=== PATIENT | male | born 1980 | race Two or more races ===

== ENCOUNTER 2024-08-05 13:57 | Emergency (ER) | payer MEDICAID, OTHER ==
[~2024-08-05] VITALS: Ht 162.6 cm; Wt 85.4 kg
--- NOTE | 2024-08-05 16:42 | DVH ---
Procedure: CT HEAD WITHOUT CONTRAST Study Date and Requested Time: 08/05/2024 04:22 PM History: HEADACHE POST FALL Comparison: None Dose: CTDI: 51.88 mGy DLP: 831.82 mGycm Technique: Multiplanar images obtained through the brain without intravenous contrast. Findings: Mild frontal lobe predominate brain atrophy. No hemorrhages, masses, mass effect, midline shift, herniation or cytotoxic edema following a large v ascular territory. No intra-axial or extra-axial fluid collections. No evidence of hydrocephalus. The basal cisterns are patent. The pituitary gland, sella and parasellar regions are unremarkable. The cerebellar tonsils are in nor mal position. The cerebellum is unremarkable. The orbits and globes are unremarkable. Pansinus mucoperiosteal thickening. The mastoids are clear. There are no worrisome calvarial lesions. Impression: No evidence of acute intracranial abnormality. Pansinus disease.
[2024-08-05] MEDS ORDERED: AMOX875T3 PO (16:55)
[2024-08-05] MEDS ORDERED: IBUP-1456 PO (16:55)
--- NOTE | 2024-08-05 16:55 | ED.PDOC ---
Sharon. trauma (HPI) HPI Comments A 43 YEAR OLD MALE PRESENTS TO THE ED WITH COMPLAINT OF HEADACHE S/P HEAD INJURY. PATIENT STATES HE ACCIDENTALLY TRIPPED AND FELL AND HIT THE LEFT SIDE OF HIS HEAD ON THE TABLE 3 WEEKS AGO. PATIENT REPORTS HE HAS BEEN EXPERIENCING HEADACHES OFF AND ON FOR THE PAST 3 WEEKS SINCE THIS INJURY WITH WORSENING PAIN OVER THE PAST 1 WEEK. PATIENT DENIES VISION CHANGES, SLURRED SPEECH, ONE-SIDED WEAKNESS, FACIAL DROOP, FEVER, CHILLS, SHORTNESS OF BREATH, CHEST PAIN, ABDOMINAL PAIN, NAUSEA, VOMITING, OR OTHER COMPLAINTS. NO OTHER SYMPTOMS OR MODIFYING FACTORS AT THIS TIME. PATIENT IS ALERT, ORIENTED X 4, AND HAS STEADY GAIT. Chief Complaint: Headache Time Seen by MD: 15:58 Reviewed notes: Nurses Notes, Medications, Allergies Allergies: Coded Allergies: NO KNOWN ALLERGIES (Unverified , 08/05/24) Home Meds Active Scripts Ibuprofen (Ibuprofen) 800 Mg Tab, 1 TAB PO TID, #30 TAB Prov:DOMI VIDAL 08/05/24 Amoxicillin Trihydrate (Amoxicillin) 875 Mg Tab, 1 TAB PO BID, #20 TAB Prov:DOMI VIDAL 08/05/24 Information Source: Patient Mode of Arrival: Ambulatory Severity: Moderate Timing: Weeks Duration: Since onset Prehospital treatment: None Location: Head Location of laceration: None Mechanism: Fall Associated signs and symtoms: Headache Past Medical History PAST MEDICAL HISTORY: Anxiety Surgical History: Denies all surgeries Family History Family History: Reviewed,noncontributory to illness Social History Smoker: Non-Smoker Alcohol: Denies ETOH Use Drugs: Denies Drug Use Lives In: Home Constitutional: denies: chills, diaphoresis, fatigue, fever, malaise, sweats, weakness, others EENTM: denies: blurred vision, double vision, ear bleeding, ear discharge, ear drainage, ear pain, ear ringing, eye pain, eye redness, hearing loss, mouth pain, mouth swelling, nasal discharge, nose bleeding, nose congestion, nose pain, photophobia, tearing, throat pain, throat swelling, voice changes, others Respiratory: denies: cough, hemoptysis, orthopnea, SOB at rest, shortness of breath, SOB with excertion, stridor, wheezing, others Cardiovascular: denies: chest pain, dizzy spells, diaphoresis, Dyspnea on exertion, edema, irregular heart beat, left arm pain, lightheadedness, palpitations, PND, syncope, others Gastrointestinal: denies: abdomen distended, abdominal pain, blood streaked bowels, constipated, diarrhea, dysphagia, difficulty swallowing, hematemesis, melena, nausea, poor appetite, poor fluid intake, rectal bleeding, rectal pain, vomiting, others Genitourinary: denies: burning, dysuria, flank pain, frequency, hematuria, incontinence, penile discharge, penile sore, pain, testicle pain, testicle swelling, urgency, others Neurological: reports: headache; denies: dizziness, fainting, left sided numbness, left sided weakness, numbness, paresthesia, pre-existing deficit, right sided numbness, right sided weakness, seizure, speech problems, tingling, tremors, weakness, others Musculoskeletal: denies: back pain, gout, joint pain, joint swelling, muscle pain, muscle stiffness, neck pain, others Integumetry: denies: bruises, change in color, change in hair/nails, dryness, laceration, lesions, lumps, rash, wounds, others Allergic/Immunocompromised: denies: Difficulty Healing, Frequent Infections, Hives, Itching, others Hematologic/Lymphatic: denies: anemia, blood clots, easy bleeding, easy bruising, swollen glands, others Endocrine: denies: excessive hunger, excessive sweating, excessive thirst, excessive urination, flushing, intolerance to cold, intolerance to heat, unexplained weight gain, unexplained weight loss, others Psychiatric: denies: anxiety, bipolar disorder, depression, hopeless, panic disorder, schizophrenia, sleepless, suicidal, others All Other Systems: Reviewed and Negative Physical Exam General Appearance: No Apparent Distress, Normal, Other (ANXIOUS ) HEENT: Head (NO SCALP CONTUSIONS AND HEMATOMAS, NO DEFORMITY. ), Normal ENT Inspection, PERRL/EOMI, Pharynx Normal, TMs Normal Neck: Full Range of Motion, Non-Tender, Normal, Normal Inspection Respiratory: Chest Non-Tender, Lungs Clear, No Accessory Muscle Use, No Re spiratory Distress, Normal Breath Sounds Cardiovascular: No Edema, No JVD, No Murmur, No Gallop, Normal Peripheral Pulses, Regular Rate/Rhythm Breast Exam: Deferred Gastrointestinal: No Organomegaly, Non Tender, No Pulsatile Mass, Normal Bowel Sounds, Soft Genitalia: Deferred Pelvic: Deferred Rectal: Deferred Extremities: No calf tenderness, Normal capillary refill, Normal inspection, Normal range of motion, Non-tender, No pedal edema Musculoskeletal : Apperance: Normal Neurologic: Alert, kitchen food assembler II-XII nml as Tested, No Motor Deficits, Normal Affect, Normal Mood, No Sensory Deficits Cerebellar Function: Normal Reflexes: Normal Skin: Dry, Normal Color, Warm Peripheral Pulses: 2+ carotid (R), 2+ carotid (L) Lymphatic: No Adenopathy Was a procedure done? Was a procedure done?: No Differential Diagnosis Multiple Trauma: Closed Head Injury, Fractures, Cerebral Contusion, Contusion, Hematoma Neck Injury: N/A X-Ray, Labs, Meds, VS Vital Signs Date Time Temp Pulse Resp B/P (MAP) Pulse Ox O2 Delivery O2 Flow Rate FiO2 08/05/24 14:34 97.6 92 20 135/97 (110) 97 Procedure: CT HEAD WITHOUT CONTRAST Study Date and Requested Time: 08/05/2024 04:22 PM History: HEADACHE POST FALL Comparison: None Dose: CTDI: 51.88 mGy DLP: 831.82 mGycm Technique: Multiplanar images obtained through the brain without intravenous contrast. Findings: Mild frontal lobe predominate brain atrophy. No hemorrhages, masses, mass effect, midline shift, herniation or cytotoxic edema following a large vascular territory. No intra-axial or extra-axial fluid collections. No evidence of hydrocephalus. The basal cisterns are patent. The pituitary gland, sella and parasellar regions are unremarkable. The cerebellar tonsils are in normal position. The cerebellum is unremarkable. The orbits and globes are unremarkable. Pansinus mucoperiosteal thickening. The mastoids are clear. There are no worrisome calvarial lesions. Impression: No evidence of acute intracranial abnormality. Pansinus disease. ATED BY: NANETTE STANLEY DO DICTATED DATE/TIME: 08/05/241638 SIGNED BY: NANETTE STANLEY DO SIGNED DATE/TIME: 08/05/241638 CC: X-Ray, Labs, Meds, VS Comment EXTERNAL NOTES: NONE INDEPENDENT HISTORIANS: NONE SOCIAL DETERMINANTS OF HEALTH: NONE LABS ORDERED: NONE REVIEWED AND INTERPRETED RESULTS: NONE IMAGING ORDERED: CT BRAIN TREATMENTS ORDERED: NONE PATIENT'S CASE AND RESULTS HAVE BEEN DISCUSSED WITH THE ED ATTENDING PHYSICIAN AND THEY AGREE WITH MY PLAN OF CARE. I HAVE DISCUSSED IMAGING RESULTS WITH THE PATIENT AND HAVE INSTRUCTED THE PATIENT TO FOLLOW UP WITH THEIR PCP IN 1-2 DAYS. THE PATIENT FULLY UNDERSTANDS THEIR RESULTS AND ARE AWARE THEY NEED TO FOLLOW UP WITH THEIR PCP FOR FURTHER EVALUATION IF THEIR SYMPTOMS PERSIST. Images Reviewed?: Images reviewed and evaluated by me Time of 1ST Reevaluation: 17:00 Reevaluation 1ST: Improved Patient Education/Counseling: Diagnosis, Treatment, Need For Follow Up Family Education/Counseling: Diagnosis, Treatment, Need For Follow Up Departure 1 Departure Time of Disposition: 17:00 Impression: Primary Impression: Acute headache Qualified Codes: G44.319 - Acute post-traumatic headache, not intractable Additional Impressions: Status post fall Sinus disease Disposition: HOME / SELF CARE / HOMELESS Condition: Stable Additional Instructions: FOLLOW-UP WITH PCP IN 1 TO 2 DAYS. TAKE MEDICATIONS PRESCRIBED. RETURN TO ED FOR ANY NEW OR WORSENING SYMPTOMS. e-Prescriptions Ibuprofen (Ibuprofen) 800 Mg Tab 1 TAB PO TID, #30 TAB Prov: DOMI VIDAL 08/05/24 Amoxicillin Trihydrate (Amoxicillin) 875 Mg Tab 1 TAB PO BID, #20 TAB Prov: DOMI VIDAL 08/05/24 Discharged With: Self Critical Care Note Critical Care Time?: No Stability Stability form required: No I personally scribed for DOMI VIDAL ([email or web address]) on 08/05/24 at 16:55. Electronically submitted by Jude Tian ([email or web address]). DOMI VIDAL Aug 05, 2024 16:55
[2024-08-05 16:58] VITALS: BP 143/85; PULSE 85; RESP 16; O2SAT 98
== END 2024-08-05 17:08 | disposition home or self-care (01) ==
LOC: ER 13:57
DX: R51.9 Headache, unspecified (principal); J32.9 Chronic sinusitis, unspecified; W18.39XA Other fall on same level, initial encounter; Y93.89 Activity, other specified; Y92.89 Other specified places as the place of occurrence of the external cause; Y99.8 Other external cause status
CPT/HCPCS: 70450

== ENCOUNTER 2025-01-19 08:09 | Emergency (ER) | payer MEDICAID ==
[~2025-01-19] VITALS: Ht 167.6 cm; Wt 89.6 kg
[~2025-01-19 08:09] MED LIST: AMOX875T3 PO; IBUP-1456 PO
[2025-01-19 08:28] LABS: Urine Bacteria None Seen /hpf (None Seen)
[2025-01-19 08:55] LABS: Urine Blood TRACE /uL (Negative); Urine Clarity Clear (Clear); Urine Color Yellow (Yellow); Urine Mucus FEW (None Seen); Urine Protein, UAD TRACE (Negative); Urine Specific Gravity 1.031 (1.001-1.035); Urine Squamous Epithelial Cell None Seen /hpf (<5); Urine Urobilinogen Normal (Negative); Urine WBC 3 /HPF (0-3); Urine pH 5.5 (5.0-9.0)
--- NOTE | 2025-01-19 09:18 | DVH ---
ULTRASOUND OF SCROTUM AND CONTENTS. INDICATION: LEFT TESTICULAR SWELLING AND PAIN COMPARISON: None TECHNIQUE: Multiple real-time grayscale sonographic and color and duplex Doppler images of the scrotu m and its contents were obtained. FINDINGS: The right testicle measures 4 cm. The left testicle measures 4 cm. Both testicles demonstrate homogeneous echotexture without evidence of focal lesions. The right epididymal head measures 2 cm. The left epididymal head measures 2.8 cm. Subsequent color and duplex Doppler interrogation of the testes demonstrated symmetric normal vascula r flow to both testicles. Increased vascular flow to the left epididymis. IMPRESSION: Left epididymitis
--- NOTE | 2025-01-19 10:19 | ED.PDOC ---
General HPI Comments This is a 44 year old male presenting to the ED with chief complaint of testicular pain. Patient reports that he has been experiencing left sided testicular pain, swelling, and dysuria for the past week. Patient relays that Ibuprofen relieved his pain and swelling for some time, but once stopping it, his pain and swelling returned. Patient denies any hematuria, flank pain, fever, nausea, vomiting, or abdominal pain. Chief Complaint: Testicle Pain Time Seen by MD: 10:15 Primary Care Provider: ? Reviewed notes: Nurses Notes, Medications, Allergies Allergies: Coded Allergies: NO KNOWN ALLERGIES (Unverified , 08/05/24) Home Meds Active Scripts Ibuprofen (Ibuprofen) 800 Mg Tab, 1 TAB PO TID, #30 TAB Prov:DOMI VIDAL 08/05/24 Amoxicillin Trihydrate (Amoxicillin) 875 Mg Tab, 1 TAB PO BID, #20 TAB Prov:DOMI VIDAL 08/05/24 Information Source: Patient Mode of Arrival: Ambulatory Severity: Moderate Timing: Days Duration: Since onset Prehospital treatment: None Onset: Spontaneous Symptoms: Dysuria History of: None Location: None Location male: L Scrotum Penile discharge: None Modifying factors: None Past Medical History PAST MEDICAL HISTORY: Anxiety Surgical History: Denies all surgeries Family History Family History: Reviewed,noncontributory to illness Social History Smoker: Non-Smoker Alcohol: Denies ETOH Use Drugs: Denies Drug Use Lives In: Home Constitutional: denies: chills, diaphoresis, fatigue, fever, malaise, sweats, weakness, others EENTM: denies: blurred vision, double vision, ear bleeding, ear discharge, ear drainage, ear pain, ear ringing, eye pain, eye redness, hearing loss, mouth pain, mouth swelling, nasal discharge, nose bleeding, nose congestion, nose pain, photophobia, tearing, throat pain, throat swelling, voice changes, others Respiratory: denies: cough, hemoptysis, orthopnea, SOB at rest, shortness of breath, SOB with excertion, stridor, wheezing, others Cardiovascular: denies: chest pain, dizzy spells, diaphoresis, Dyspnea on exertion, edema, irregular heart beat, left arm pain, lightheadedness, palpitations, PND, syncope, others Gastrointestinal: denies: abdomen distended, abdominal pain, blood streaked bowels, constipated, diarrhea, dysphagia, difficulty swallowing, hematemesis, melena, nausea, poor appetite, poor fluid intake, rectal bleeding, rectal pain, vomiting, others Genitourinary: reports: dysuria, testicle pain, testicle swelling; denies: burning, flank pain, frequency, hematuria, incontinence, penile discharge, penile sore, pain, urgency, others Neurological: denies: dizziness, fainting, headache, left sided numbness, left sided weakness, numbness, paresthesia, pre-existing deficit, right sided numbness, right sided weakness, seizure, speech problems, tingling, tremors, weakness, others Musculoskeletal: denies: back pain, gout, joint pain, joint swelling, muscle pain, muscle stiffness, neck pain, others Integumetry: denies: bruises, change in color, change in hair/nails, dryness, laceration, lesions, lumps, rash, wounds, others Allergic/Immunocompromised: denies: Difficulty Healing, Frequent Infections, Hives, Itching, others Hematologic/Lymphatic: denies: anemia, blood clots, easy bleeding, easy bruising, swollen glands, others Endocrine: denies: excessive hunger, excessive sweating, excessive thirst, excessive urination, flushing, intolerance to cold, intolerance to heat, unexplained weight gain, unexplained weight loss, others Psychiatric: denies: anxiety, bipolar disorder, depression, hopeless, panic disorder, schizophrenia, sleepless, suicidal, others All Other Systems: Reviewed and Negative Physical Exam General Appearance: No Apparent Distress, Normal HEENT: Normal ENT Inspection, Pharynx Normal, TMs Normal Neck: Full Range of Motion, Non-Tender, Normal, Normal Inspection Respiratory: Chest Non-Tender, Lungs Clear, No Accessory Muscle Use, No Respiratory Distress, Normal Breath Sounds Cardiovascular: No Edema, No JVD, No Murmur, No Gallop, Normal Peripheral Pulses, Regular Rate/Rhythm Breast Exam: Deferred Gastrointestinal: No Organomegaly, Non Tender, No Pulsatile Mass, Normal Bowel Sounds, Soft Genitalia: Other (Testicular tenderness) Pelvic: Deferred Rectal: Deferred Extremities: No calf tenderness, Normal capillary refill, Normal inspection, Normal range of motion, Non-tender, No pedal edema Musculoskeletal : Apperance: Normal Neurologic: Alert, property coordinator II-XII nml as Tested, No Motor Deficits, Normal Affect, Normal Mood, No Sensory Deficits Cerebellar Function: Normal Reflexes: Normal Skin: Dry, Normal Color, Warm Lymphatic: No Adenopathy Was a procedure done? Was a procedure done?: No Differential Diagnosis Kidney stone (Female): N/A Kidney stone (Male): N/A Penile/Scrotal: Epidiymitis, UTI, Hydrocele X-Ray, Labs, Meds, VS Vital Signs Date Time Temp Pulse Resp B/P (MAP) Pulse Ox O2 Delivery O2 Flow Rate FiO2 01/19/25 08:23 98.4 79 18 148/95 (112) 97 98.4 Lab Test 01/19/25 08:19 Range/Units Urine Color Yellow Yellow Urine Clarity Clear Clear Urine pH 5.5 5.0-9.0 Urine Specific [place] 1.031 1.001-1.035 Urine Protein Trace H Negative Urine Ketones Negative Negative Urine Blood Trace H Negative /uL Urine Nitrite Negative Negative Urine Bilirubin Negative Negative Urine Urobilinogen Normal Negative mg/dL Urine Leukocyte Esterase Negative Negative /uL Urine RBC 5 0 - 3 /hpf Urine Microscopic WBC 3 0-3 /HPF Urine Squamous Epithelial Cells None seen <5 /hpf Urine Bacteria None seen None Seen /hpf Urine Mucus Few None Seen Urine Glucose Normal Normal mg/dL Chlamydia trachomatis (MARYELLEN) Pending Neisseria gonorrhoeae (MARYELLEN) Pending Time of 1ST Reevaluation: 11:15 Reevaluation 1ST: Unchanged Patient Education/Counseling: Diagnosis, Treatment Family Education/Counseling: No Family Present Additional Information Previous visits reviewed: 08/05/24 for acute headache The following tests were ordered, and results were reviewed by me: UA, Testicular US Additional Information was gathered from interviewing the following independent historians: None I reviewed and agreed with the following test results read by other providers: Testicular US I discussed treatment and results with medical personnel and: patient Comprehensive systems review obtained and negative except for what is stated in the HPI. Departure 1 Departure Time of Disposition: 10:31 (She was epididymitis. We will discharge patient home with antibiotics and outpatient follow up.) Impression: Primary Impression: Epididymitis, left Disposition: 01 HOME / SELF CARE / HOMELESS Condition: Stable Referrals: EDUARD FORTE MD Additional Instructions: You have epididymitis. You were prescribed antibiotics. Please take as directed. You can take Tylenol Motrin as needed for pain. You were referred to urologist. Please call for an appointment. It is important that he follow up with the regular doctor within 1 week to ensure you are doing better. If your symptoms worsen or you have any other concerns then please return to the emergency room. e-Prescriptions Levofloxacin Hemihydrate (LEVAQUIN 500 MG) 500 Mg Tab 750 MG PO DAILY for 7 Days, #11 TAB Prov: CONCEPCIÓN JENKINS MD 01/19/25 Discharged With: Self Critical Care Note Critical Care Time?: No Stability Stability form required: No Heart Score Heart Score: Heart Score Response (Comments) Value History N/A 0 EKG N/A 0 Age N/A 0 Risk Factors N/A 0 Troponin N/A 0 Total 0 I personally scribed for CONCEPCIÓN JENKINS MD ([email or web address]) on 01/19/25 at 10:19. Electronically submitted by Burke Love ([email or web address]). CONCEPCIÓN JENKINS MD Jan 19, 2025 10:19
[2025-01-19 10:31] VITALS: BP 126/85; PULSE 70; RESP 18; TEMP 98.9; O2SAT 95
[2025-01-19] MEDS ORDERED: LEVO500T91 PO (10:33)
[2025-01-19] MEDS: DOXYCYCLINE 100 MG TAB/CAP PO ONE (10:35)
[2025-01-19] MEDS: cefTRIAXone SOD 1,000 MG VL ONE (10:44)
[2025-01-19] MEDS: cefTRIAXone W LIDOCAINE 1 GM IM IM ONE (10:44)
[2025-01-21 02:06] LABS: Chlamydia Trachomatis, NAA Negative (Negative); Neisseria gonorrhoeae, NAA Negative (Negative)
== END 2025-01-19 10:54 | disposition home or self-care (01) ==
LOC: ER 08:09
DX: N45.1 Epididymitis (principal); F41.9 Anxiety disorder, unspecified
CPT/HCPCS: 76870; 81001; 87491; 87591; 96372; 99285; J0696